=== PATIENT | female | born 1985 | race Caucasian/White ===

== ENCOUNTER 2023-12-10 10:14 | Emergency (ER) | payer BC, SELFPAY ==
[2023-12-10 10:20] VITALS: BP 186/106; PULSE 63; RESP 18; TEMP 36.7; O2SAT 100
--- NOTE | 2023-12-10 10:35 | ED.DENTAL ---
HPI - Dental/Oral General Chief complaint: Dental/Oral Stated complaint: tooth pain Time Seen by Provider: 12/10/23 10:36 Source: patient, RN notes reviewed and old records reviewed Mode of arrival: ambulatory Limitations: no limitations History of Present Illness HPI Narrative: 38 year old female presents to [facility] with complaints of dental pain to left upper mouth area. Patient reports that she had an extraction done last week of one of her upper molars and area is still painful and she also has other bad teeth in her mouth stating pain to the eye tooth on left upper side with noted decay and some redness of gum. Patient reports that her doctor called in some Amoxicillin for her 2-3 days ago but continues to have pain. Patient states that she has been taking Tylenol and Ibuprofen without relief. MD Complaint: tooth pain Location: Tooth # (11) Onset (ago): day(s) (5) Duration: constant Severity scale (1-10): 5 Treatment prior to arrival: oral analgesic (Tylenol and Ibuprofen) and other (on Amoxicillin) Related Data Home Medications Medication Instructions Recorded Confirmed amoxicillin 500 mg capsule mg 12/10/23 Allergies Allergy/AdvReac Type Severity Reaction Status Date / Time No Known Allergies Allergy Verified 02/02/23 09:51 Review of Systems Review of Systems: CONSTITUTIONAL: Denies fever, chills, or sweats. ENT: Denies rhinorrhea, congestion, sore throat, or otalgia. Reports dental pain to #11 tooth which has noted caries and some redness at gum and to upper back where molar was removed CARDIOVASCULAR: Denies chest pain, palpitations, or edema. RESPIRATORY: Denies cough or dyspnea. SKIN: Denies rash or itching. MUSCULOSKELETAL: Denies myalgia. NEUROLOGIC: Denies headache All systems reviewed & are unremarkable except as noted in HPI and below PMFSH Past Medical History Medical History Anxiety Depression Seizure Surgical History Surgical History H/O colposcopy with cervical biopsy no dysplasia or HPV H/O gynecological procedure ParaGard insertion 01/13/11 ParaGard removal/Mirena insertion 12/11/20 H/O: knee surgery Family History Family History Father Diabetes mellitus Cerebrovascular accident Kidney disease Social History Social History Smoking status: Current every day smoker Tobacco type: e-cigarettes/vaping Alcohol intake: former Substance use: current Substance use type: marijuana Lack of Transportation: No Lack of Food: Never True Current Housing: I Have Housing Concerned About Future Housing: No Difficulty Paying Gas/Electric Bills: No Difficulty Paying for Meds: No Currently Unemployed: No Education: High School Diploma/GED Difficulty w/ Childcare or Family Care: No Living arrangements: with family Occupation/Education: occupation Gender identity (if verbalized by the patient): Female Sexual Orientation (if Verbalized by the Patient): Straight or Heterosexual Comments At time of signature, agree with nursing past medical, surgical, social and family history. There is no relevant family history pertinent to the presenting complaint Exam Narrative: GENERAL: Well-appearing, well-nourished, and in no acute distress. HEAD: Normocephalic, atraumatic. EYES: PERRLA and EOMI. ENT: Nares clear, no rhinorrhea or epistaxis. Mucous membranes moist. Missing teeth, caries noted to #11 tooth and some redness of gum and pain to where left upper molar was extracted this past week, no trismus or any Aaron angina noted. NECK: Supple.no lymphadenopathy CHEST: Clear to auscultation. No respiratory distress.SAO2 100% on room air. HEART: Regular rate and rhythm. No murmur heard. Normal peripheral pulses. SKIN: Warm, dry, no rash. NEURO
== END 2023-12-10 10:59 | disposition home or self-care (01) ==
PROVIDERS: Emergency Provider Registered Nurse
DX: K02.9 Dental caries, unspecified (principal); G89.18 Other acute postprocedural pain; F17.290 Nicotine dependence, other tobacco product, uncomplicated; F12.90 Cannabis use, unspecified, uncomplicated
CPT/HCPCS: 99213; G0463